=== PATIENT | female | born 1945 | race Caucasian/White ===

== ENCOUNTER 2016-06-15 10:01 | Emergency (ER) | payer MEDICARE, OTHER ==
[~2016-06-15] VITALS: Ht 152.4 cm; Wt 89.0 kg
[~2016-06-15 10:01] MED LIST: AMLO5TAB4 PO; BENA40TA41 PO; OMEP20CA16 PO; PANT40TA3 PO; SIMV20TA PO; TRAM50TA2 PO
[2016-06-15 10:19] VITALS: Ht 152.4 cm; Wt 89.0 kg
[2016-06-15] MEDS ORDERED: KETOROLAC 30 MG INJ IM STA (11:32)
[2016-06-15] MEDS ORDERED: DEXAMETHASONE 4 MG TAB PO ONE (12:00)
[2016-06-15] MEDS ORDERED: TRAM-40 PO (12:31)
[2016-06-15] MEDS ORDERED: INDO25CA25 PO (12:31)
--- NOTE | 2016-06-15 12:34 | ERD ---
ER Documentation Chief Complaint Date/Time DATE: 06/15/16 TIME: 12:32 Chief Complaint RT KNEE PAIN X3 WEEKS. CHRONIC KNEE PAIN ON LT SIDE. HPI 8-year-old female complains of right knee pain for last 3 weeks. It started after miss stepping out of his vehicle possibly. She denies fevers, redness, or weakness. She saw her primary doctor and was prescribed Voltaren for possible gout. Patient is here with her daughter who is requesting indomethacin for gout. Family states she did have laboratory work drawn by primary doctor but did not have results. ROS All systems reviewed and are negative except as per history of present illness. Medications Home Meds Active Scripts Tramadol Hcl* (Ultram*) 50 Mg Tablet, 50 MG PO Q6H Y for PAIN, #20 TAB Prov:ANDREW AGGARWAL MD 06/15/16 Indomethacin* (Indocin*) 25 Mg Capsule, 25 MG PO Q6, #20 CAP Prov:ANDREW AGGARWAL MD 06/15/16 Tramadol HCl (Tramadol HCl) 50 Mg Tablet, 50 MG PO Q8 Y for PAIN, #8 TAB Prov:CLAUDIA PARKER MD 12/02/15 Pantoprazole* (Protonix*) 40 Mg Tablet.dr, 40 MG PO DAILY, #20 TAB Prov:CLAUDIA PARKER MD 12/02/15 Reported Medications Omeprazole* (Omeprazole*) 20 Mg Capsule.dr, 20 MG PO AC BREAKFAST, #30 CAP 12/02/15 Amlodipine Besylate* (Norvasc*) 5 Mg Tablet, 5 MG PO DAILY, TAB 12/02/15 Benazepril Hcl* (Benazepril Hcl*) 40 Mg Tablet, 40 MG PO DAILY, #30 TAB 12/02/15 Simvastatin* (Zocor*) 20 Mg Tablet, 20 MG PO QHS, #30 TAB 12/02/15 Allergies Allergies: Coded Allergies: No Known Allergy (Unverified , 06/15/16) PMhx/Soc History of Surgery: Yes (cholecystectomy, left knee) Anesthesia Reaction: No Hx Neurological Disorder: No Hx Respiratory Disorders: No Hx Cardiac Disorders: Yes (hypertension) Hx Psychiatric Problems: No Hx Miscellaneous Medical Probl: Yes (dyslipidemia, gastritis.) Hx Alcohol Use: No Hx Substance Use: No Hx Tobacco Use: No Smoking Status: Never smoker Physical Exam Vitals Vital Signs Date Time Temp Pulse Resp B/P Pulse Ox O2 Delivery O2 Flow Rate FiO2 06/15/16 10:19 98.5 105 16 196/88 95 Physical Exam Const: [] Alert, [id number]. Head: Atraumatic Eyes: Normal Conjunctiva ENT: Normal External Ears, Nose and Mouth. Neck: Full range of motion..~ No meningismus. Resp: Clear to auscultation bilaterally Cardio: Regular rate and rhythm, no murmurs Abd: Soft, non tender, non distended. Normal bowel sounds Skin: No petechiae or rashes Back: No midline or flank tenderness Ext: No cyanosis, or edema. There is some tenderness and generalized swelling in the right knee joint. There is no deformities, warmth or erythema. There is no calf swelling Homans sign, or weakness. Neur: Awake and alert Psych: Normal Mood and Affect Results 24 hrs Current Medications Medications (Trade) Dose Ordered Sig/Christin Route PRN Reason Start Time Stop Time Status Last Admin Dose Admin Ketorolac Tromethamine (Toradol) 30 mg ONCE STAT IM 06/15/16 11:32 06/15/16 11:34 DC 06/15/16 11:45 Dexamethasone (Decadron) 8 mg ONCE ONCE PO 06/15/16 12:00 06/15/16 12:01 DC 06/15/16 11:45 Procedures/MDM X-ray right knee 3V Interpreted by me: Bones: [No fracture] Joints: [No dislocation] Foreign body: [None]. Impression have degenerative changes right knee without fracture dislocation Patient was given Toradol 30 mg IM. Patient was also given Decadron 8 mg by mouth for presumed gout. Patient will be treated with Indocin by request with instructions to take with food, tramadol for severe pain and instructed to follow-up with primary doctor orthopedist for further evaluation management for persistent pain. There is no evidence of fracture, dislocation, and no signs or symptoms to suggest DVT, septic arthritis or bacterial infection. The patient was stable with no new complaints during the ER course. Clinically, there is no current evidence to suggest meningitis, sepsis, acute abdomen, pneumonia, acute coronary syndrome, pulmonary embolism, or any other emergent condition appearing to require further evaluation or hospitalization. The patient should certainly return for any new or worsening symptoms per the aftercare instructions. They should otherwise follow-up with her primary care doctor for reevaluation this week. Departure Diagnosis: Primary Impression: Knee pain Laterality: right Chronicity: acute Qualified Code: M25.561 - Acute pain of right knee Condition: Stable Patient Instructions: Knee Pain, Uncertain Cause Referrals: [facility] Hours: Wed-Fri 9:00 AM - 5:00 PM Additional Instructions: We will treat for gout. Follow-up with primary doctor for further evaluation and management. X-ray shows mild arthritis without acute findings. Return for fevers, redness, new worsening symptoms. Recommend knee brace from [employer] for support. ANDREW AGGARWAL MD Jun 15, 2016 12:33
--- NOTE | 2016-06-15 13:07 | RADRPT ---
PROCEDURE: XR Knee 3 Views. CLINICAL INDICATION: Right knee pain TECHNIQUE: AP, lateral and tunnel view of the right knee were obtained. The images reviewed on a PACS workstation. COMPARISON: None. FINDINGS: Diffuse osteopenia is identified. No destructive bony lesions are observed. Interosseous spaces ar e normal. Small enthesiophytes project from the superior and inferior margins of the patella. Ques tionable, small suprapatellar joint effusion is seen. IMPRESSION: Osteopenia. Small enthesiophytes that project from the superior and inferior margins of the patella. Findings c ould be the sequelae of quadriceps tendonitis. Questionable, small suprapatellar joint effusion. If there is high clinical suspicion for traumatic injury, further evaluation with CT should be consi dered. If further characterization is needed CT or MRI could be helpful. RPTAT: AA .Noé Dallas MD, Date Time Electronically viewed and signed by .Noé Dallas MD, on 06/15/2016 13:06 .P/
== END 2016-06-15 12:56 | disposition home or self-care (01) ==
LOC: FTE 10:01
DX: M25.561 Pain in right knee (principal); I10 Essential (primary) hypertension
CPT/HCPCS: 73562; 96372; 99284; J1885

== ENCOUNTER 2017-03-06 06:40 | Emergency (ER) | END 2017-03-06 09:15 | disposition home or self-care (01) ==